=== PATIENT | male | born 1945 | race Native Hawaiian/Other Pacific Islander ===

== ENCOUNTER 2022-02-28 10:35 | Outpatient (CLI) | payer OTHER | END 2022-02-28 19:10 | disposition home or self-care (01) | LOC: MRI 10:35 | PROVIDERS: ATTEND Orthopaedic Surgery | DX: M25.511 Pain in right shoulder (principal); M75.41 Impingement syndrome of right shoulder; M19.011 Primary osteoarthritis, right shoulder ==

== ENCOUNTER 2022-12-11 09:33 | Outpatient (CLI) | payer OTHER ==
[2022-12-11 11:21] LABS: POTASSIUM 4.6 mmol/L (3.6-5.2)
== END 2022-12-11 19:07 | disposition home or self-care (01) ==
LOC: LABW 09:33
PROVIDERS: ATTEND Internal Medicine Cardiovascular Disease
DX: Z79.899 Other long term (current) drug therapy (principal); R06.09 Other forms of dyspnea
CPT/HCPCS: 36415; 80048; 83880